=== PATIENT | male | born 1975 | race Caucasian/White ===

== ENCOUNTER → 2021-04-17 | Outpatient (CLI) | payer BC ==
[~2021-04-17] MED LIST: ASPIR-LOW81 MG PO; BRILINTA90 MG PO; BUSPAR 10MG10 MG PO; BUSPAR 5MG TABLE5 MG PO; FLEXERIL 10 MG10 MG PO; HABITROL 21 MG P1 EA TP; KLONOPIN0.5 MG PO; LIPITOR TAB 2020 MG PO; LOSARTAN POTASS50 MG PO; METOPROLOL SUCC25 MG PO; NITROSTAT 0.40.4 MG PO; PROTONIX 40 MG40 M1 PO; PROZAC20 MG PO; SEROQUEL100 MG PO; VISTARIL50 MG PO
== END ==
LOC: LAB 08:37
DX: M54.41 Lumbago with sciatica, right side (principal); M54.42 Lumbago with sciatica, left side; M47.816 Spondylosis without myelopathy or radiculopathy, lumbar region
CPT/HCPCS: 72100

== ENCOUNTER 2021-08-13 12:56 | Emergency (ER) | payer BC ==
[~2021-08-13] VITALS: Ht 172.7 cm; Wt 108.4 kg
== END 2021-08-13 16:35 | disposition home or self-care (01) ==
LOC: ER1 12:56
DX: U07.1 COVID-19 (principal); E11.9 Type 2 diabetes mellitus without complications; Z23 Encounter for immunization
CPT/HCPCS: 99283; M0245

== ENCOUNTER → 2021-12-08 | Outpatient (CLI) | payer BC | LOC: EXRD 09:10 | DX: M54.50 Low back pain, unspecified (principal); M47.816 Spondylosis without myelopathy or radiculopathy, lumbar region | CPT/HCPCS: 72110 ==

== ENCOUNTER 2021-12-17 13:30 | Emergency (ER) | payer BC | END 2021-12-17 16:45 | disposition home or self-care (01) | LOC: ER1 13:30 | DX: S00.01XA Abrasion of scalp, initial encounter (principal); S40.212A Abrasion of left shoulder, initial encounter; E11.9 Type 2 diabetes mellitus without complications; I10 Essential (primary) hypertension; I25.2 Old myocardial infarction; Z87.891 Personal history of nicotine dependence; Z79.02 Long term (current) use of antithrombotics/antiplatelets; Z79.01 Long term (current) use of anticoagulants; W20.8XXA Other cause of strike by thrown, projected or falling object, initial encounter; Y92.89 Other specified places as the place of occurrence of the external cause; Y99.0 Civilian activity done for income or pay | CPT/HCPCS: 70450; 90714; 99283 ==

== ENCOUNTER → 2022-01-20 | Outpatient (CLI) | payer BC | LOC: EMI 15:42 | DX: M48.062 Spinal stenosis, lumbar region with neurogenic claudication (principal); M47.817 Spondylosis without myelopathy or radiculopathy, lumbosacral region | CPT/HCPCS: 72148 ==